=== PATIENT | male | born 1985 | race Caucasian/White ===

== ENCOUNTER 2018-01-10 16:52 | Emergency (ER) | payer OTHER ==
[2018-01-10 17:05] VITALS: BP 143/88
[2018-01-10] MEDS ORDERED: IBUPROFEN 400 MG TABLET PO STA (17:52)
--- NOTE | 2018-01-10 17:55 | ED Physician Documentation ---
History of Present Illness - Stated complaint Stated Complaint: RT WRIST PX - Chief complaint Chief Complaint: Ext Problem - Additonal information Additional information: hx from pt 32 ma;e hx cyst (? synovial - it was operated on) R wrist today after moving cases of water and Gatorade he developed pain and swelling to his dorsal distal R FA no direct trauma Review of Systems Musculoskeletal: reports: Extremity pain PD PAST MEDICAL HISTORY - Past Medical History Past Medical History: No - Past Surgical History Past Surgical History: Yes Ortho: Other - Present Medications Home Medications: Ambulatory Orders Medication Instructions Recorded Confirmed No Known Home Medications [No 01/10/18 01/10/18 Known Home Medications] - Allergies Allergies/Adverse Reactions: Allergies Allergy/AdvReac Type Severity Reaction Status Date / Time No Known Drug Allergies Allergy Verified 01/10/18 17:05 - Social History Does the pt smoke?: No Smoking Status: Never smoker Does the pt drink ETOH?: Yes Does the pt have substance abuse?: No - Immunizations Immunizations are current?: Yes PD ED PE NORMAL - Vitals Vital signs reviewed: Yes - Extremities Extremities: Other (F FA - focal STS distal dorsal R FA prox to wrist, not fluctuant red or warm, no boy TTP, some pain with excess wrist flexion, MSV intact) Results - Vitals Vitals: Vital Signs - 24 hr 01/10/18 17:03 Temperature 36.4 C L Heart Rate 80 Respiratory 18 Rate Blood Pressure 143/88 H O2 Saturation 97 Oxygen O2 Source Room air PD MEDICAL DECISION MAKING - ED course ED course: bedside ST sono shows no fluid collection Departure - Departure Disposition: 01 Home, Self Care Clinical Impression: Muscle strain Condition: Good Instructions: ED Splint Care Kirill Comments: It looks like the swelling is within the muscles of your forarm This should subside with rest, ice, and an anti-inflammatory like motrin Use the splint as needed for comfort Forms: Activity restrictions
== END 2018-01-10 18:17 | disposition home or self-care (01) ==
LOC: ED 16:52
DX: S56.911A Strain of unspecified muscles, fascia and tendons at forearm level, right arm, initial encounter (principal); X50.0XXA Overexertion from strenuous movement or load, initial encounter; Y99.0 Civilian activity done for income or pay
CPT/HCPCS: 99282; 99283; A9270

== ENCOUNTER 2018-04-05 08:23 | Outpatient (CLI) | payer OTHER ==
--- NOTE | 2018-04-05 15:49 | MRI Report ---
EXAM: RIGHT WRIST MRI WITHOUT CONTRAST. EXAM DATE: 04/05/2018 09:06 AM. CLINICAL HISTORY: Right wrist pain. Previous ganglion removal and tendon repair in 2016. COMPARISON: None. TECHNIQUE: Multiplanar, multisequence T1-weighted and fluid-sensitive sequences of the wrist without contrast. Other: None. FINDINGS: Bones: There is an approximately 7 x 6 x 5 mm well-corticated bone fragment adjacent to the volar uln ar aspect of the trapezium, which may represent an accessory ossicle or old ununited fracture. There is also an approximately 8 x 4 x 5 mm well-corticated bone fragment dorsal to the capitate-trapezoid articulation, which may represent an old ununited fracture or accessory ossicle. There is pseudoartic ulation and subcortical marrow edema between the dorsal aspect of the base of the third metacarpal an d this bone fragment. No acute fractures or subluxations. No marrow edema. No bone lesions. Cartilage: The articular cartilage is unremarkable. The triangular fibrocartilage complex is unremark able. Ligaments: The scapholunate and lunotriquetral ligaments are intact. The visualized other intrinsic, extrinsic and collateral ligaments are unremarkable. Tendons: There is mild extensor digitorum tenosynovitis from the level of the distal radius to the di stal capitate. No tendon tear. Mild extensor carpi radialis longus and brevis tenosynovitis at the le rosas of the radioscaphoid joint. Musculature: No edema or fatty atrophy. Other: The contents of the carpal tunnel, including the median nerve, are unremarkable. Guyons canal is unremarkable. No ganglion cysts. No joint effusions. The subcutaneous tissues are unremarkable. IMPRESSION: 1. Mild extensor digitorum tenosynovitis from the level of the distal radius to the distal capitate. 2. Mild extensor carpi radialis longus and brevis tenosynovitis at the level of the radioscaphoid anish nt. 3. An 8 x 4 x 5 mm well-corticated bone fragment dorsal to the capitate-trapezoid articulation, which may represent an old ununited fracture accessory ossicle. There is pseudo-articulation and subcortic al marrow edema between this bone fragment and the dorsal aspect of the base of the third metacarpal. 4. A 7 x 6 x 5 mm well-corticated bone fragment adjacent to the volar ulnar aspect of the trapezium, which may represent an accessory ossicle or old ununited fracture. [facility]CULOSKE[facility]IOLOG[facility] SECTION Referring Provider Line: [phone] SITE ID: [id number]
== END 2018-04-05 08:24 | disposition home or self-care (01) ==
LOC: DI 08:23
PROVIDERS: ATTEND Family Medicine
DX: M25.531 Pain in right wrist (principal); M65.831 Other synovitis and tenosynovitis, right forearm